=== PATIENT | female | born 1970 | race Caucasian/White ===

== ENCOUNTER 2018-04-11 08:12 | Outpatient (CLI) | payer BC ==
--- NOTE | 2018-04-11 11:02 | MMO ---
BILATERAL SCREENING MAMMOGRAM: Date: 04/11/18 HISTORY: 47-year-old female. Routine screening mammography. COMPARISON: 07/29/14, 07/29/15, 07/30/16. TECHNIQUE: CC and MLO views of both breasts are submitted for interpretation, with implants present and implants displaced. This patient's mammogram was reviewed with the assistance of computer-aided detection. FINDINGS: The breasts are composed of scattered fibroglandular tissue. Bilaterally, no suspicious dominant mass , architectural distortion, or suspicious calcifications. Benign-appearing calcifications are noted i n the right breast. Bilateral implants are intact. IMPRESSION: BIRADS 2: Benign Finding(s) RECOMMENDATION: Annual mammogram. POS: P[facility]EL
== END 2018-04-11 08:13 | disposition home or self-care (01) ==
LOC: SCSMAMMO 08:12
PROVIDERS: ATTEND Obstetrics & Gynecology
DX: Z12.31 Encounter for screening mammogram for malignant neoplasm of breast (principal)
CPT/HCPCS: 77067